=== PATIENT | female | born 1980 ===

== ENCOUNTER → 2018-12-25 22:18 | Outpatient (REF) | payer OTHER, SELFPAY ==
[2018-12-25 22:25] LABS: RBC Urine None Seen (0-5/HPF)
[2018-12-25 22:59] LABS: Appearance Urine UA CLEAR; Bilirubin Urine UA NEGATIVE (NEGATIVE); Color Urine UA YELLOW; Glucose Urine UA NEGATIVE (Negative); Ketones Urine UA NEGATIVE (NEGATIVE); Leukocyte Esterase Urine UA 2+ (NEGATIVE); Nitrite Urine UA NEGATIVE (Negative); Occult Blood Urine UA NEGATIVE (Negative); Protein Urine UA NEGATIVE (Negative); Urobilinogen Urine UA 0.2 E.U./dL (0.2)
[2018-12-25 23:05] LABS: Alanine Aminotransferase 24 IU/L (9-52); Albumin 4.6 g/dL (3.5-5.0); Albumin Globulin Ratio 1.5 (1.0-2.8); Alkaline Phosphatase 47 U/L (38-126); Aspartate Aminotransferase 21 IU/L (14-36); BUN Creatinine Ratio 15.7 (6-22); Bilirubin Total 1.5 mg/dL (0.2-1.3); Bilirubin Unconjugated 1.3 mg/dL (0.0-1.1); Blood Urea Nitrogen 11 mg/dL (7-17); Calcium 9.5 mg/dL (8.4-10.2); Carbon Dioxide 28 mmol/L (22-32); Chloride 102 mmol/L (98-107); Cholesterol 162 mg/dL (140-199); Estimated Glomerular Filt Rate > 60.0 mL/min (>60); Gamma Glutamyl Transpeptidase 15 U/L (12-43); Glucose 92 mg/dL (70-100); HDL Cholesterol 87 mg/dL (40-60); HEMOLYSIS < 15 (0-50); Iron 144 ug/dL (37-170); LDL Cholesterol Calculated 65 mg/dL (<100); Potassium 4.2 mmol/L (3.4-5.1); Sodium 139 mmol/L (137-145); Total Protein 7.6 g/dL (6.3-8.2); Triglycerides 52 mg/dL (35-150)
[2018-12-25 23:08] LABS: Add Manual Diff / Slide Review NO; Basophils Absolute Auto 100 /uL (0-100); Basophils Percent Auto 1.2 % (0-2); Eosinophils Absolute Auto 500 /uL (0-450); Eosinophils Percent Auto 9.6 % (2-4); Hematocrit 40.8 % (36-46); Hemoglobin 13.5 g/dL (12.0-16.0); Lymphocytes Absolute Auto 1100 /uL (1100-4500); Lymphocytes Percent Auto 19.7 % (25-40); Mean Corpuscular Hemoglobin 28.6 PG (26-34); Mean Corpuscular Volume 86.7 fL (80-100); Monocytes Absolute Auto 400 /uL (0-900); Monocytes Percent Auto 7.1 % (3-14); Neutrophils Absolute Auto 3400 /uL (1500-7000); Neutrophils Percent Auto 62.4 % (50-75); Platelet Count 256 X10^3/uL (150-400); Red Blood Cell Count 4.71 X10^6/uL (4.0-5.2); White Blood Cell Count 5.4 X10^3/uL (4.5-11.0)
[2018-12-25 23:16] LABS: Bacteria Urine Many (>30); Culture Indicated Urine Specimen Cultured; Percent Iron Saturation 34 % (15-50); Squamous Epithelial Cell Urine 1-5 /HPF (0-5/HPF); Total Iron Binding Capacity 422 ug/dL (265-497); Transferrin 316 mg/dL (206-381); WBC Urine 1-5/HPF (0-5/HPF)
[2018-12-25 23:23] LABS: Vitamin D 25 Hydroxy (D3) 31.9 ng/mL (30.0-100.0)
[2018-12-25 23:24] LABS: Free T3, Triiodothyronine Free 4.51 pg/mL (2.77-5.27); Free T4, Direct Thyroxine 1.41 ng/dL (0.78-2.19); Triiodothryronine T3 Uptake 35.7 % (23.5-40.5)
[2018-12-25 23:29] LABS: Hemoglobin A1C% w Est Avg Glu 5.2 % (4.0-6.0)
[2018-12-25 23:30] LABS: Erythrocyte Sedimentation Rate 3 MM/HR (0-20)
[2018-12-25 23:37] LABS: Thyroid Stimulating Hormone 0.83 uIU/mL (0.47-4.68)
[2018-12-27 15:27] LABS: Progesterone 0.5 ng/mL; Triiodothyronine T3 Total 100 ng/dL (76-181)
[2018-12-28 17:10] LABS: Anti Thyroglobulin Antibody < 1 IU/mL (< 2); Thyroid Peroxidase Antibodies 2 IU/mL (< 9)
[2018-12-29 18:37] LABS: Estrogen 512.1 pg/mL
[2018-12-30 18:37] LABS: Estriol,Serum <0.10 ng/mL; Estrone 127 pg/mL
== END ==
LOC: LAB 22:18
PROVIDERS: Visit Provider Acupuncturist
DX: Z00.00 Encounter for general adult medical examination without abnormal findings (principal)
CPT/HCPCS: 36415; 80053; 80061; 80069; 80076; 81001; 82306; 82671; 82672; 82977; 83001; 83036; 83540; 83550; 84144; 84439; 84443; 84479; 84480; 84481; 85025; 85651; 86376; 86800; 87077; 87086